=== PATIENT | male | born 1960 | race Caucasian/White ===

== ENCOUNTER 2017-03-11 11:24 | Observation (INO) | payer OTHER ==
[~2017-03-11] VITALS: Ht 180.3 cm; Wt 88.2 kg
[2017-03-11 12:59] LABS: HEMATOCRIT 45.4 % (38.0-50.0); MCH 32.2 PG (29.0-34.0); MCHC 34.6 G/DL (30.0-36.0); PLATELET COUNT 259 K/uL (156-360); RED BLOOD COUNT 4.88 M/uL (4.00-5.50); WHITE BLOOD COUNT 7.3 K/uL (4.1-10.2)
[2017-03-11 13:08] LABS: CHLORIDE 103 mEq/L (99-109); POTASSIUM 4.2 mEq/L (3.7-5.4); SODIUM 140 mEq/L (136-147)
[2017-03-11 13:10] LABS: GLUCOSE 78 mg/dL (70-99)
[2017-03-11 13:11] LABS: ANION GAP 18 MEQ/L (2-14)
[2017-03-11 13:14] LABS: GFR ESTIMATE (CALCULATED) > 59 mL/min/
[2017-03-11 13:15] LABS: UREA NITROGEN (BUN) 16 mg/dL (9-23)
[2017-03-11] MEDS ORDERED: ZESTRIL40 MG PO (14:10)
[2017-03-11] MEDS ORDERED: AMLODIPINE BESY10 MG PO (14:10)
[2017-03-11] MEDS ORDERED: LO-DOSE ASPIRIN81 M1 PO (14:10)
[2017-03-11] MEDS ORDERED: PROVENTIL HFA6.7 GM IH (14:11)
[2017-03-11 15:30] VITALS: BP 139/82
[2017-03-11 23:00] VITALS: BP 140/86
[2017-03-12 03:30] VITALS: BP 130/85
[2017-03-12 05:47] LABS: HEMATOCRIT 43.5 % (38.0-50.0); MCH 32.3 PG (29.0-34.0); MCHC 34.5 G/DL (30.0-36.0); MCV 93.5 FL (86-99); MEAN PLAT.VOLUME 9.1 uM^3 (9.0-12.4); PLATELET COUNT 282 K/uL (156-360); RBC DIS.WIDTH-CV 12.9 % (11.8-14.6); RBC DIS.WIDTH-SD 44.9 % (39-53); RED BLOOD COUNT 4.65 M/uL (4.00-5.50); WHITE BLOOD COUNT 7.4 K/uL (4.1-10.2)
[2017-03-12 06:12] LABS: ANION GAP 12 MEQ/L (2-14); CHLORIDE 101 MEQ/L (99-109); GFR ESTIMATE (CALCULATED) > 59 mL/min/; POTASSIUM 4.2 MEQ/L (3.7-5.4); SAMPLE HEMOLYSIS CHECK 0; SAMPLE ICTERIC CHECK 0; SAMPLE LIPEMIA CHECK 0; SODIUM 136 MEQ/L (136-147); UREA NITROGEN (BUN) 19 mg/dL (9-23)
[2017-03-12 06:13] LABS: GLUCOSE 136 mg/dL (70-99)
[2017-03-12 11:40] VITALS: BP 132/72
[2017-03-12 15:10] VITALS: BP 136/74
[2017-03-12 16:22] VITALS: BP 120/68
[2017-03-12 19:00] VITALS: BP 127/71
[2017-03-12 23:43] VITALS: BP 135/79
[2017-03-13 04:55] VITALS: BP 127/76
[2017-03-13 08:15] VITALS: BP 129/83
[2017-03-13 08:30] VITALS: BP 129/83
[2017-03-13 11:15] VITALS: BP 140/75
[2017-03-13] MEDS ORDERED: BENADRYL25 MG PO (13:15)
[2017-03-13] MEDS ORDERED: PREDNISONE10 MG PO (13:16)
[2017-03-13] MEDS ORDERED: FAMOTIDINE20 MG PO (13:27)
== END 2017-03-13 14:11 | disposition home or self-care (01) ==
LOC: EME 11:24 → 4EAST 14:52 → EDOF 14:52 → 5WEST 14:52 → EDOF 14:52 → ENRESERV 14:53 → 5WEST 15:27 → ENRESERV 20:56 → 4EAST 22:54 → ENPENDDIS 03-13 → 4EAST 03-13 14:11
PROVIDERS: Emergency Medicine; Hospitalist
DX: T78.3XXA Angioneurotic edema, initial encounter (principal); T46.4X5A Adverse effect of angiotensin-converting-enzyme inhibitors, initial encounter; I10 Essential (primary) hypertension; J45.20 Mild intermittent asthma, uncomplicated; R13.10 Dysphagia, unspecified
CPT/HCPCS: 80048; 85027; 94760; 99202; 99281; 99284; G0378; J0171; J1100; J1200; J1644; J2930; J7030; S0028